=== PATIENT | male | born 1960 | race African-American/Black ===

== ENCOUNTER 2016-09-16 23:08 | Emergency (ER) | payer BC ==
[~2016-09-16] VITALS: Ht 167.6 cm; Wt 92.0 kg
[2016-09-16] MEDS ORDERED: SODIUM CHLORIDE 0.9% 1,000 ML IV ONE (23:33)
[2016-09-16 23:52] LABS: BASOPHILS % 0.5 % (0.0-2.0); HEMATOCRIT. 45.6 % (42.0-52.0); LYMPHOCYTES % 26.7 % (20.0-50.0); MEAN CORPUSCULAR HEMOGLOBIN 29.6 pg (28.0-32.0); MEAN CORPUSCULAR HGB CONC 32.8 g/dL (31.0-37.0); MEAN CORPUSCULAR VOLUME 90.3 fL (80.0-94.0); MEAN PLATELET VOLUME 7.8 fl (7.4-10.4); NEUTROPHILS % 63.8 % (40.0-76.0); PLATELET 259 x1000/uL (130-400); RED BLOOD CELL COUNT 5.05 mill/uL (4.7-6.1); RED CELL DISTRIBUTION WIDTH 13.8 % (11.6-14.6); WHITE BLOOD COUNT 9.4 x1000/uL (4.5-11.0)
[2016-09-16 23:56] LABS: PROTHROMBIN TIME 10.8 sec
[2016-09-17 00:03] LABS: ALANINE AMINOTRANSFERASE 46 IU/L (13-61); ALBUMIN 4.3 g/dL (3.4-5.0); ANION GAP 15; CALCIUM 8.7 mg/dL (8.5-10.1); CARBON DIOXIDE 27 mEq/L (21-32); CHLORIDE 102 mEq/L (98-107); ETHANOL BLOOD < 10 mg/dL; INDEX HEMOLYSI 1 (1-3); INDEX ICTERIC 1 (1-4); INDEX LIPEMIC 1 (1-3); TROPONIN I < 0.02 ng/mL (0.00-0.04); UREA NITROGEN BLOOD 12 mg/dL (7-21); eGFR > 60 mL/min (>60)
[2016-09-17 02:03] VITALS: BP 159/98
== END 2016-09-17 02:46 | disposition home or self-care (01) ==
LOC: ER 23:29
DX: R42 Dizziness and giddiness (principal); R53.1 Weakness; R11.0 Nausea; F17.210 Nicotine dependence, cigarettes, uncomplicated
CPT/HCPCS: 36415; 70450; 71010; 80053; 84484; 85025; 85610; 93005; 96360; 96361; 99285; 99406; G0482; J7030; Z7610